=== PATIENT | male | born 1995 | race Caucasian/White ===

== ENCOUNTER 2016-12-11 18:47 | Inpatient (IN) ==
--- NOTE | 2016-12-11 18:58 | Emergency Department Note ---
Disposition Clinical Impression: Depression Qualifiers: Depression Type: unspecified Qualified Code(s): F32.9 - Major depressive disorder, single episode, unspecified Disposition: Admitted As Inpatient Condition: Fair Forms: ED Satisfaction Letter Time of Disposition: 20:59 Psych HPI - General Chief Complaint: ED Psychiatric Symptoms Stated Complaint: SI Time Seen by Provider: 12/11/16 18:54 Source: patient Mode of arrival: ambulatory Limitations: no limitations Nursing Notes Reviewed: Yes Vital Signs Reviewed: Yes - History of Present Illness HPI Narrative: 21-year-old had some depression and was started on Zoloft by his family doctor today who called family members stated that he was going to . Family found him sitting in the car in the garage with the motor running for about 15 minutes. He is awake and alert on arrival. 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 Duration: constant History of similar episodes: No Improves with: none Worsens with: none Context: significant life stressor Alleged intoxication: No Associated Psychiatric Symptoms: depression, suicidal ideation Traumatic symptoms: denies traumatic injury Treatments prior to arrival: none - Related Data Previous Rx's Medication Instructions Recorded Ondansetron ODT [Zofran ODT] 4 mg PO Q6HR PRN #10 tab.rapdis 02/25/16 Promethazine [Phenergan] 25 mg PO Q6HR PRN #14 tablet 03/02/16 Allergies Allergy/AdvReac Type Severity Reaction Status Date / Time cephalexin [From Keflex] Allergy Hives Verified 12/11/16 18:48 Constitutional: Denies: fever, chills, weakness, weight change Eyes: Denies: eye pain, eye discharge, vision change ENT ED: Denies: ear pain, throat pain, dental pain, hearing loss, epistaxis, congestion, dysphagia Cardiovascular: Denies: chest pain, palpitations, dyspnea on exertion, edema, syncope Respiratory: Denies: cough, dyspnea, wheezes, hemoptysis, stridor Gastrointestinal: Denies: abdominal pain, nausea, vomiting, diarrhea, constipation, hematemesis, melena, hematochezia Genitourinary: Denies: urgency, dysuria, frequency, hematuria Musculoskeletal: Denies: back pain, neck pain, arthralgia, myalgia Integumentary: Denies: rash, abrasion, lesions Neurological: Denies: headache, weakness, numbness, paresthesias, confusion, abnormal gait, vertigo Psychiatric: Reports: depression, suicidal thoughts. Denies: anxiety, homicidal thoughts, auditory hallucinations, visual hallucinations Endocrine: Denies: fatigue Hematological/Lymphatic: Denies: easy bleeding, easy bruising Allergic/Immunologic: Denies: facial swelling, urticaria Past Medical History - Past Medical History Medical history: Reports: no medical history Surgical history: Reports: no surgical history Psychiatric history: Reports: no psych history - Social History Smoking Status: Never smoker Smokeless Tobacco Status: No Alcohol use: Reports: none Drug use: Reports: none Physical Exam - General Limitations: no limitations General appearance: alert, in no apparent distress - Head Head exam: atraumatic, normocephalic, normal inspection - Eye Eye exam: Present: normal appearance, PERRL, EOMI - ENT ENT exam: normal exam, normal oropharynx, mucous membranes moist - Neck Neck exam: Present: normal inspection, full ROM, trachea midline - Chest Chest inspection: Present: normal inspection - Respiratory Respiratory exam: Present: normal lung sounds bilaterally - Cardiovascular Cardiovascular exam: Present: regular rate, normal rhythm, normal heart sounds - Abdominal Exam Abdominal exam: Present: soft, Non-Tender. Absent: tenderness, distention, guarding, rebound, rigidity - Extremities Exam Extremities exam: Present: normal inspection, full ROM. Absent: tenderness, pedal edema - Expanded Lower Extremity Exam Neurovascular/Tendon exam: Absent: motor deficit, sensory deficit, tendon deficit Gait: observed and normal - Back Exam Back exam: Present: normal inspection, full ROM. Absent: tenderness - Neurological Exam Neurological exam: Present: alert, oriented X3 - Psychiatric Psychiatric exam: Present: depressed, suicidal ideation - Skin Skin exam: Present: warm, dry, intact, normal color Course - Consultations Consultation #1: Patient was seen by psychiatry the patient will be admitted to the psychiatric unit. Time: 20:57 Vital Signs Temperature 98.4 F 12/11/16 18:50 Pulse Rate 91 12/11/16 18:50 Respiratory Rate 16 12/11/16 18:50 Blood Pressure 138/84 12/11/16 18:50 O2 Sat by Pulse Oximetry 95 12/11/16 18:50 Temperature 98.4 F 12/11/16 18:50 Pulse Rate 91 12/11/16 19:11 Respiratory Rate 16 12/11/16 19:11 Blood Pressure 138/84 12/11/16 19:11 O2 Sat by Pulse Oximetry 99 12/11/16 19:11 Oxygen Delivery Oxygen Delivery Nasal Cannula Psych - Lab Data Result diagrams: 12/11/16 19:05 12/11/16 19:05 Lab Results 12/11/16 12/11/16 12/11/16 Range/Units 19:05 19:05 19:05 WBC 6.3 (4.3-11.1) K/mcL RBC 4.87 (4.19-5.50) M/mcL Hgb 15.5 (12.9-16.9) g/dL Hct 42.8 (37.5-50.1) % MCV 87.9 (83.0-100.0) fL MCH 31.8 (28.0-33.3) pg MCHC 36.2 H (31.6-35.5) g/dL RDW 12.0 (11.5-14.5) % Plt Count 217 (140-400) K/mcL MPV 9.8 (9.4-12.4) fL Immature Gran % 0.2 (0-4) % Seg Neutrophils % 70.0 % Lymphocytes % 23.1 % Monocytes % 5.9 % Eosinophils % 0.3 % Basophils % 0.5 % Neutrophils # 4.4 (1.6-8.9) K/mcL Lymphocytes # 1.5 (0.6-4.6) K/mcL Monocytes # 0.4 (0.0-1.3) K/mcL Eosinophils # 0.0 (0.0-0.6) K/mcL Basophils # 0.0 (0.0-0.2) K/mcL Immature Plt Fraction 2.7 (1.1-6.1) % Carboxyhemoglobin 2.4 (0-5) % Sodium 140 (136-145) mEq/L Potassium 3.6 (3.5-4.5) mEq/L Chloride 106 (98-109) mEq/L Carbon Dioxide 26 (19-29) mEq/L BUN 16 (8-26) mg/dL Creatinine 0.95 (0.72-1.25) mg/dL Est GFR ( Amer) > 60 (> 60) Est GFR (Non-Af Amer) > 60 (> 60) BUN/Creatinine Ratio 17 (6-26) Glucose 128 H (70-99) mg/dL Calculated Osmolality 293 (280-300) Calcium 9.7 (8.6-10.8) mg/dL Urine Color (Yellow) Urine Clarity (Clear) Urine pH (5.0-8.0) pH Units Ur Specific Mabel (1.010-1.025) Urine Protein (Neg-Trace) mg/dL Urine Glucose (UA) (Normal) mg/dL Urine Ketones (Negative) mg/dL Urine Blood (Negative) Urine Nitrite (Negative) Urine Bilirubin (Negative) Urine Urobilinogen (Normal) mg/dL Ur Leukocyte Esterase (Negative) Urine Microscopic RBC (0-3) per hpf Urine Microscopic WBC (0-3) per hpf Ur Squamous Epith Cells (None-Few) per lpf Urine Bacteria (None-Few) per hpf Hyaline Casts (None-Few) per lpf Salicylates < 5.0 L (15-30) mg/dL Urine Opiates Screen (Ltpnrn=304) ng/mL Acetaminophen < 1.0 L (10-30) mcg/mL Ur Barbiturates Screen (Fugcaj=936) ng/mL Ur Phencyclidine Scrn (Cutoff=25) ng/mL Ur Amphetamines Screen (Klzliv=1174) ng/mL U Benzodiazepines Scrn (Wktvci=170) ng/mL Urine Cocaine Screen (Cutoff= 300) ng/mL U Marijuana (THC) Screen (Cutoff = 50) ng/mL Ethyl Alcohol < 10 (0-10) mg/dL 12/11/16 12/11/16 Range/Units 19:06 19:06 WBC (4.3-11.1) K/mcL RBC (4.19-5.50) M/mcL Hgb (12.9-16.9) g/dL Hct (37.5-50.1) % MCV (83.0-100.0) fL MCH (28.0-33.3) pg MCHC (31.6-35.5) g/dL RDW (11.5-14.5) % Plt Count (140-400) K/mcL MPV (9.4-12.4) fL Immature Gran % (0-4) % Seg Neutrophils % % Lymphocytes % % Monocytes % % Eosinophils % % Basophils % % Neutrophils # (1.6-8.9) K/mcL Lymphocytes # (0.6-4.6) K/mcL Monocytes # (0.0-1.3) K/mcL Eosinophils # (0.0-0.6) K/mcL Basophils # (0.0-0.2) K/mcL Immature Plt Fraction (1.1-6.1) % Carboxyhemoglobin (0-5) % Sodium (136-145) mEq/L Potassium (3.5-4.5) mEq/L Chloride (98-109) mEq/L Carbon Dioxide (19-29) mEq/L BUN (8-26) mg/dL Creatinine (0.72-1.25) mg/dL Est GFR ( Amer) (> 60) Est GFR (Non-Af Amer) (> 60) BUN/Creatinine Ratio (6-26) Glucose (70-99) mg/dL Calculated Osmolality (280-300) Calcium (8.6-10.8) mg/dL Urine Color Dark Yellow (Yellow) Urine Clarity Clear (Clear) Urine pH 7.0 (5.0-8.0) pH Units Ur Specific Mabel > 1.030 H (1.010-1.025) Urine Protein 30 H (Neg-Trace) mg/dL Urine Glucose (UA) Normal (Normal) mg/dL Urine Ketones Trace H (Negative) mg/dL Urine Blood Negative (Negative) Urine Nitrite Negative (Negative) Urine Bilirubin Small H (Negative) Urine Urobilinogen Normal (Normal) mg/dL Ur Leukocyte Esterase Negative (Negative) Urine Microscopic RBC 0-3 (0-3) per hpf Urine Microscopic WBC 0-3 (0-3) per hpf Ur Squamous Epith Cells Moderate H (None-Few) per lpf Urine Bacteria None Seen (None-Few) per hpf Hyaline Casts None Seen (None-Few) per lpf Salicylates (15-30) mg/dL Urine Opiates Screen Negative (Fnpqkd=441) ng/mL Acetaminophen (10-30) mcg/mL Ur Barbiturates Screen Negative (Usnolr=316) ng/mL Ur Phencyclidine Scrn Negative (Cutoff=25) ng/mL Ur Amphetamines Screen Negative (Oohfzg=1592) ng/mL U Benzodiazepines Scrn Negative (Callwa=244) ng/mL Urine Cocaine Screen Negative (Cutoff= 300) ng/mL U Marijuana (THC) Screen Negative (Cutoff = 50) ng/mL Ethyl Alcohol (0-10) mg/dL Psychiatric Medical Clearance - Medical Clearance Checklist Medical History: No Social History Section defined Current Vitals: Last Vital Signs Temp 98.4 F 12/11/16 18:50 Pulse 91 12/11/16 19:11 Resp 16 12/11/16 19:11 BP 138/84 12/11/16 19:11 Pulse Ox 99 12/11/16 19:11 Psychiatric Lab Panel: Drug Levels and Toxicity 12/11/16 12/11/16 19:05 19:06 Urine Opiates Screen Negative Acetaminophen < 1.0 L Ur Barbiturates Screen Negative Ur Phencyclidine Scrn Negative Ur Amphetamines Screen Negative U Benzodiazepines Scrn Negative Urine Cocaine Screen Negative U Marijuana (THC) Screen Negative Ethyl Alcohol < 10 Abnormal Labs: Abnormal lab results MCHC 36.2 g/dL (31.6-35.5) H 12/11/16 19:05 Glucose 128 mg/dL (70-99) H 12/11/16 19:05 Ur Specific Mabel > 1.030 (1.010-1.025) H 12/11/16 19:06 Urine Protein 30 mg/dL (Neg-Trace) H 12/11/16 19:06 Urine Ketones Trace mg/dL (Negative) H 12/11/16 19:06 Urine Bilirubin Small (Negative) H 12/11/16 19:06 Ur Squamous Epith Cells Moderate per lpf (None-Few) H 12/11/16 19:06 Salicylates < 5.0 mg/dL (15-30) L 12/11/16 19:05 Acetaminophen < 1.0 mcg/mL (10-30) L 12/11/16 19:05 Statement of Medical Clearance: I have evaluated the patient, reviewed diagnostic information, and certify that the patient's medical condition is sufficiently stable that transfer to the psychiatric unit does not pose a significant risk of deterioration.
[2016-12-11 19:17] LABS: Basophils % 0.5 %; Eosinophils % 0.3 %; Hematocrit 42.8 % (37.5-50.1); Hemoglobin 15.5 g/dL (12.9-16.9); Immature Granulocytes % 0.2 % (0-4); Immature Platelets 2.7 % (1.1-6.1); Lymphocytes # 1.5 K/mcL (0.6-4.6); Lymphocytes % 23.1 %; Mean Corpuscular HGB Conc 36.2 g/dL (31.6-35.5); Mean Corpuscular Hemoglobin 31.8 pg (28.0-33.3); Mean Corpuscular Volume 87.9 fL (83.0-100.0); Mean Platelet Volume 9.8 fL (9.4-12.4); Monocytes # 0.4 K/mcL (0.0-1.3); Monocytes % 5.9 %; Neutrophils # 4.4 K/mcL (1.6-8.9); Platelet Count 217 K/mcL (140-400); Red Blood Count 4.87 M/mcL (4.19-5.50)
[2016-12-11 19:20] LABS: Amphetamine Screen,Urine Negative ng/mL (Cutoff=1000); Barbiturate Screen,Urine Negative ng/mL (Cutoff=200); Benzodiazepines Screen,Urine Negative ng/mL (Cutoff=200); Cannabinoid Screen,Urine Negative ng/mL (Cutoff = 50); Cocaine Screen,Urine Negative ng/mL (Cutoff= 300); Opiate Screen,Urine Negative ng/mL (Cutoff=300); Phencyclidine Screen,Urine Negative ng/mL (Cutoff=25)
[2016-12-11 19:21] LABS: Bilirubin,Urine Small (Negative); Blood,Urine Negative (Negative); Clarity,Urine Clear (Clear); Color,Urine Dark Yellow (Yellow); Glucose,Urine (UA) Normal (Normal); Ketones,Urine Trace mg/dL (Negative); Leukocyte Esterase,Urine Negative (Negative); Nitrite,Urine Negative (Negative); Protein,Urine 30 mg/dL (Neg-Trace); Specific Gravity,Urine > 1.030 (1.010-1.025); Urobilinogen,Urine Normal (Normal)
[2016-12-11 19:24] LABS: Bacteria,Urine None Seen per hpf (None-Few); Hyaline Casts,Urine None Seen per lpf (None-Few); RBC,Urine 0-3 per hpf (0-3); Squamous Epithelial Cell,Urine Moderate per lpf (None-Few); WBC,Urine 0-3 per hpf (0-3)
[2016-12-11 19:34] LABS: BUN/Creatinine Ratio 17 (6-26); Blood Urea Nitrogen 16 mg/dL (8-26); Calcium 9.7 mg/dL (8.6-10.8); Carbon Dioxide 26 mEq/L (19-29); Chloride 106 mEq/L (98-109); Glucose 128 mg/dL (70-99); Osmolality,Calculated 293 (280-300); Potassium 3.6 mEq/L (3.5-4.5); Sodium 140 mEq/L (136-145); eGFR For African Americans > 60 (> 60); eGFR For Non-African Americans > 60 (> 60)
[2016-12-11 19:35] LABS: Acetaminophen < 1.0 mcg/mL (10-30); Ethanol < 10 mg/dL (0-10); Salicylate < 5.0 mg/dL (15-30)
[2016-12-11] MEDS ORDERED: Ibuprofen 400 MG TABLET PO PRN (21:14)
[2016-12-11] MEDS ORDERED: MOM Conc 10 ML UD.LIQ PO PRN (21:14)
[2016-12-11] MEDS ORDERED: Haloperidol Lactate 5 MG/ML VIAL IM PRN (21:14)
[2016-12-11] MEDS ORDERED: *HR* LORazepam 1 MG TABLET PO PRN (21:14)
[2016-12-11] MEDS ORDERED: *HR* LORazepam 2 MG/ML VIAL IM PRN (21:14)
[2016-12-11] MEDS ORDERED: traZODone 50 MG TABLET PO PRN (21:14)
[2016-12-11] MEDS ORDERED: Mag Hydrox/Al Hydrox/Simeth 30 ML UDC PO PRN (21:14)
[2016-12-11] MEDS ORDERED: hydrOXYzine pamoate 25 MG CAPSULE PO PRN (21:14)
--- NOTE | 2016-12-12 13:07 | Psychiatry History & Physical ---
Date of Encounter: 12/12/16 Time of Encounter: 12:15 History of Present Illness Patient Stated Chief Complaint: Suicidal attempts by carbon monoxide poisoning Medicare Admission Attestation: For traditional Medicare patients the provided hospital inpatient services are reasonable and necessary and in the case of services not specified as inpatient -only under 42 CFR 419.22 (n), that they are appropriately provided as inpatient services in accordance 42 CFR 412.3. For Critical Access Hospital the patient may reasonably be expected to be discharged or transferred to a hospital within 96 hours after admission to the Critical Access Hospital. Admitted From: Emergency Dept History of Present Illness: Mr. Remy is a 21 year old male admitted from the emergency room where he was brought in by the EMS after attempting suicide by carbon monoxide poisoning. Patient was running his car in a garage was a garage closed and car window open for 15 minutes before he was found by the parents called the squad. Patient denied having any previous suicide attempts he recently had some issues related to his ex-girlfriend and mother of his 3 years old daughter and has been seeing a counselor and was given Zoloft by his family doctor for the past couple weeks. Patient stated that he had an argument with his his ex-girlfriend and after which he became focused on suicide and hopelessness and he was by himself at home when he attempted suicide until he was found by the parents. In the ER patient was evaluated and found to be medically stable and his labs and tox screen were within normal limits. Patient reports symptoms of depressive thoughts, obsessive negative thoughts and what he call overanalyzing of everyday life issues. 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 He does not smoke or use caffeine and he denied any use of alcohol or drugs. Past Med Surg Social Fam HX - Past Medical History Medical history: no medical history - Past Psychiatric History Psychiatric history: Reports: no psych history Family psychiatric history: Unknown Family History of Suicide: Unknown - Past Surgical History Surgical History: no surgical history - Social History Smoking Status: Never smoker Smokeless Tobacco Status: No Alcohol use: none Drug use: none - Family History Mother Hx Family Neuromuscular Disorders: Yes (MS) Father Hx Family Medical Disorders: No Medications & Allergies Sertraline [Zoloft] 50 mg PO DAILY 12/11/16 [History] Allergies cephalexin [From Keflex] Allergy (Verified 12/11/16 18:48) Madyson Review of Systems Psychiatric: Reports: depression, anxiety, suicidal ideation, hopelessness Mental Status Exam Patient orientation: Yes Person, Yes Time, Yes Place Level of alertness: Alert Patient appearance: Appropriate, Well Groomed Behavior: calm, cooperative, anxious, guarded Psychomotor activity: Normal Eye contact: Maintains Eye Contact Mood description: Depressed, Anxious Affect description: congruent with mood, constricted Speech pattern: Normal rate, Normal rhythm, Normal tone Speech volume: Normal Thought process: Linear, Goal Oriented Thought content: Yes Suicidal ideation, No Homicidal ideation, No Overt delusions Perceptual disturbances: No Auditory hallucinations, No Visual hallucinations Attention span: Capable of Focused Attention Memory description: Grossly Intact Patient reliability: Reliable Historian Intelligence estimate: Average Judgment: Limited Insight: Partial Results - Vital Signs Vital signs: Temp Pulse Resp BP Pulse Ox 98.4 F 80 14 123/84 99 12/11/16 21:20 12/11/16 21:20 12/11/16 21:20 12/11/16 21:20 12/11/16 19:11 - Labs Labs: Laboratory Last Values WBC 6.3 K/mcL (4.3-11.1) 12/11/16 19:05 RBC 4.87 M/mcL (4.19-5.50) 12/11/16 19:05 Hgb 15.5 g/dL (12.9-16.9) 12/11/16 19:05 Hct 42.8 % (37.5-50.1) 12/11/16 19:05 MCV 87.9 fL (83.0-100.0) 12/11/16 19:05 MCH 31.8 pg (28.0-33.3) 12/11/16 19:05 MCHC 36.2 g/dL (31.6-35.5) H 12/11/16 19:05 RDW 12.0 % (11.5-14.5) 12/11/16 19:05 Plt Count 217 K/mcL (140-400) 12/11/16 19:05 MPV 9.8 fL (9.4-12.4) 12/11/16 19:05 Immature Gran % 0.2 % (0-4) 12/11/16 19:05 Seg Neutrophils % 70.0 % 12/11/16 19:05 Lymphocytes % 23.1 % 12/11/16 19:05 Monocytes % 5.9 % 12/11/16 19:05 Eosinophils % 0.3 % 12/11/16 19:05 Basophils % 0.5 % 12/11/16 19:05 Neutrophils # 4.4 K/mcL (1.6-8.9) 12/11/16 19:05 Lymphocytes # 1.5 K/mcL (0.6-4.6) 12/11/16 19:05 Monocytes # 0.4 K/mcL (0.0-1.3) 12/11/16 19:05 Eosinophils # 0.0 K/mcL (0.0-0.6) 12/11/16 19:05 Basophils # 0.0 K/mcL (0.0-0.2) 12/11/16 19:05 Immature Plt Fraction 2.7 % (1.1-6.1) 12/11/16 19:05 Carboxyhemoglobin 2.4 % (0-5) 12/11/16 19:05 Sodium 140 mEq/L (136-145) 12/11/16 19:05 Potassium 3.6 mEq/L (3.5-4.5) 12/11/16 19:05 Chloride 106 mEq/L (98-109) 12/11/16 19:05 Carbon Dioxide 26 mEq/L (19-29) 12/11/16 19:05 BUN 16 mg/dL (8-26) 12/11/16 19:05 Creatinine 0.95 mg/dL (0.72-1.25) 12/11/16 19:05 Est GFR ( Amer) > 60 (> 60) 12/11/16 19:05 Est GFR (Non-Af Amer) > 60 (> 60) 12/11/16 19:05 BUN/Creatinine Ratio 17 (6-26) 12/11/16 19:05 Glucose 128 mg/dL (70-99) H 12/11/16 19:05 Calculated Osmolality 293 (280-300) 12/11/16 19:05 Calcium 9.7 mg/dL (8.6-10.8) 12/11/16 19:05 Urine Color Dark Yellow (Yellow) 12/11/16 19:06 Urine Clarity Clear (Clear) 12/11/16 19:06 Urine pH 7.0 pH Units (5.0-8.0) 12/11/16 19:06 Ur Specific [place] > 1.030 (1.010-1.025) H 12/11/16 19:06 Urine Protein 30 mg/dL (Neg-Trace) H 12/11/16 19:06 Urine Glucose (UA) Normal mg/dL (Normal) 12/11/16 19:06 Urine Ketones Trace mg/dL (Negative) H 12/11/16 19:06 Urine Blood Negative (Negative) 12/11/16 19:06 Urine Nitrite Negative (Negative) 12/11/16 19:06 Urine Bilirubin Small (Negative) H 12/11/16 19:06 Urine Urobilinogen Normal mg/dL (Normal) 12/11/16 19:06 Ur Leukocyte Esterase Negative (Negative) 12/11/16 19:06 Urine Microscopic RBC 0-3 per hpf (0-3) 12/11/16 19:06 Urine Microscopic WBC 0-3 per hpf (0-3) 12/11/16 19:06 Ur Squamous Epith Cells Moderate per lpf (None-Few) H 12/11/16 19:06 Urine Bacteria None Seen per hpf (None-Few) 12/11/16 19:06 Hyaline Casts None Seen per lpf (None-Few) 12/11/16 19:06 Salicylates < 5.0 mg/dL (15-30) L 12/11/16 19:05 Urine Opiates Screen Negative ng/mL (Usuolv=780) 12/11/16 19:06 Acetaminophen < 1.0 mcg/mL (10-30) L 12/11/16 19:05 Ur Barbiturates Screen Negative ng/mL (Ngksai=465) 12/11/16 19:06 Ur Phencyclidine Scrn Negative ng/mL (Cutoff=25) 12/11/16 19:06 Ur Amphetamines Screen Negative ng/mL (Ollisd=1881) 12/11/16 19:06 U Benzodiazepines Scrn Negative ng/mL (Toesrx=990) 12/11/16 19:06 Urine Cocaine Screen Negative ng/mL (Cutoff= 300) 12/11/16 19:06 U Marijuana (THC) Screen Negative ng/mL (Cutoff = 50) 12/11/16 19:06 Ethyl Alcohol < 10 mg/dL (0-10) 12/11/16 19:05 Assessment and Plan (1) Severe major depression, single episode, without psychotic features Current visit: Yes Status: Acute Plan: Admit inpatient for safety and stabilization, Close observation, Suicide Precautions per unit protocol, Encourage participation in unit milieu, Group Therapy, Monitor sleep, Monitor appetite Additional Plan: We will continue Zoloft 50 mg. Patient declined increasing the dose at this time and denies any side effects we will continue to monitor. Risks, benefits, side effects, alternatives discussed w/pt: Yes Patient agreeable to treatment: Yes
[2016-12-13 09:51] VITALS: BP 124/82
--- NOTE | 2016-12-13 13:45 | Discharge Summary ---
Date of Encounter: 12/13/16 Time of Encounter: 13:39 Diagnosis - Discharge Diagnosis (1) Severe major depression, single episode, without psychotic features Status: Acute Medications - Discharge Medications Sertraline [Zoloft] 50 mg PO DAILY 12/11/16 [History] Allergies cephalexin [From Keflex] Allergy (Verified 12/11/16 18:48) Hives Provider Date of admission: 12/11/16 21:01 Primary care physician: PCP NO Discharging clinician: Abdullahi Kelly Assessment and Plan - Patient/Caregiver Discharge Instructions Activity: resume usual activities as tolerated Diet: regular diet - Follow up Plan Follow up with: [facility] [Other] - 12/19/16 12:00 pm (The above appointment is with Jossy Aparicio for counseling.) Tato Forte MD [Partnered Physician] - 01/02/17 1:00 pm (The above appointment is with Tato Forte.) Functional capacity at discharge: independent ambulation Overall status at discharge: Stable Disposition: Home, Self-Care Hospital Course Hospital course: Mr. Remy is a 21 year old male admitted from the emergency room for attempting suicide by carbon monoxide poisoning. For details of admission please see H&P On the units patient was continued on Zoloft. He participated in activities and denied any suicidal ideation and his follow-up and discharge plans were completed by the social media marketer and discussed with his parents. Prior to discharge patient is medically stable and looking forward to go back to school and work. - Time Spent with Patient Total time spent providing and/or coordinating discharge services: Less than 30 minutes Quality - Multiple Antipsychotics Patient discharged on 2 or more antipsychotic medications: No Procedures - Procedures Procedures: Medication Management, Crisis Stabilization, Supportive Therapy, Group Therapy, Psychoeducational Therapy Mental Status Exam - Mental Status Exam Patient orientation: Yes Person, Yes Time, Yes Place Level of alertness: Alert Patient appearance: Appropriate, Well Groomed Behavior: calm, cooperative Psychomotor activity: Normal Eye contact: Maintains Eye Contact Mood description: Euthymic/stable Affect description: congruent with mood, full range Speech pattern: Normal rate, Normal rhythm, Normal tone Speech Volume: Normal Thought process: Linear, Goal Oriented Thought Content: No Suicidal ideation, No Homicidal ideation, No Overt delusions Perceptual Disturbances: No Auditory hallucinations, No Visual hallucinations Judgment: Limited Insight: Partial
== END 2016-12-13 15:05 | disposition home or self-care (01) | DRG 918 ==
LOC: EMEROO 18:47 → 1ANU 21:01
PROVIDERS: ADMIT Psychiatry & Neurology Psychiatry; ATTEND Psychiatry & Neurology Psychiatry